=== PATIENT | male | born 1965 | race Two or more races ===

== ENCOUNTER 2023-11-25 18:25 | Inpatient (IN) | payer MEDICARE, OTHER ==
[~2023-11-25] VITALS: Ht 175.3 cm; Wt 73.4 kg
[2023-11-25] MEDS: CHLORHEXIDINE GLUCONATE 2% TOWELETTE [2'S/6'S] TP SCH (09:22)
[2023-11-25 18:49] LABS: BASOPHILS % (AUTO) 0.5 % (0.0-2.0); EOSINOPHILS % (AUTO) 1.1 % (1.0-6.0); HEMATOCRIT 36.2 % (41-53); HEMOGLOBIN 12.2 g/dL (13.5-17.5); LYMPHOCYTES # (AUTO) 2.1 K/uL (1.0-4.8); LYMPHOCYTES % (AUTO) 15.1 % (22.0-44.0); MEAN CORPUSCULAR HEMOGLOBIN 29.7 pg (26.0-34.0); MEAN CORPUSCULAR HGB CONC 33.7 G/dL (31.0-37.0); MEAN CORPUSCULAR VOLUME 88 fL (80-100); MONOCYTES # (AUTO) 1.1 K/uL (0.1-1.0); MONOCYTES % (AUTO) 8.2 % (2.0-9.0); NEUTROPHILS # (AUTO) 10.3 K/uL (1.8-7.7); NEUTROPHILS % (AUTO) 75.1 % (40.0-70.0); PLATELET COUNT (AUTO) 360 K/uL (150-450); RED BLOOD CELL COUNT(AUTO) 4.12 MIL/uL (4.50-5.90); WHITE BLOOD COUNT (AUTO) 13.7 K/uL (4.5-11.0)
[2023-11-25 19:03] LABS: APPEARANCE,URINE CLEAR (CLEAR); BILIRUBIN,URINE NEGATIVE (NEGATIVE); COLOR,URINE LIGHT YELLOW (YELLOW); GLUCOSE, URINE (UA) NEGATIVE (NEGATIVE); KETONES,URINE NEGATIVE (NEGATIVE); LEUKOCYTE ESTERASE ,URINE NEGATIVE (NEGATIVE); NITRATE,URINE NEGATIVE (NEGATIVE); OCCULT BLOOD,URINE TRACE (NEGATIVE); PH,URINE 6.5 (5.0-8.0); PH,URINE DRUG SCREEN 6.5 (5.0-8.0); PROTEIN,URINE 100-200,SEE CONFIRM mg/dL (NEGATIVE); SPECIFIC GRAVITIY, URINE 1.013 (1.003-1.030); UROBILINOGEN,URINE <=1.0 mg/dL (<=1.0)
[2023-11-25 19:04] LABS: INR 1.1 (0.9-1.1); PROTHROMBIN TIME 11.9 SEC (9.4-11.6)
[2023-11-25 19:10] LABS: ALCOHOL, URINE DRUG SCREEN NEGATIVE (NEGATIVE); AMPHET/METH SCREEN,URINE POSITIVE (NEGATIVE); BARBITURATE SCREEN, URINE NEGATIVE (NEGATIVE); BENZODIAZEPINES SCREEN,URINE NEGATIVE (NEGATIVE); CANNABINOID SCREEN,URINE POSITIVE (NEGATIVE); COCAINE SCREEN,URINE NEGATIVE (NEGATIVE); METHADONE SCREEN, URINE NEGATIVE (NEGATIVE); OPIATE SCREEN,URINE NEGATIVE (NEGATIVE); PHENCYCLIDINE SCREEN,URINE POSITIVE (NEGATIVE)
[2023-11-25 19:11] LABS: LACTIC ACID 1.8 mmol/L (0.4-2.0); TROPONIN I-HIGH SENSITIVITY 16 ng/L (<76)
[2023-11-25 19:11] LABS: BACTERIA,URINE Rare /HPF (None Seen); SQUAMOUS EPITHELIAL CELL,UR Rare /LPF (None Seen); SULFOSALICYLIC ACID,URINE 2+ (Negative); WBC,URINE 0-2 /HPF (0-5)
[2023-11-25 19:25] LABS: AMMONIA < 10 umol/L (11-32)
[2023-11-25 19:27] LABS: SODIUM SERUM 141 mmol/L (136-145)
[2023-11-25 19:28] LABS: ALANINE AMINOTRANSFERASE 116 U/L (12-78); ALBUMIN 3.1 g/dL (3.4-5.0); ALKALINE PHOSPHATASE 139 U/L (46-116); ANION GAP 8 mmol/L (8-16); ASPARTATE AMINOTRANSFERASE 130 U/L (15-37); BILIRUBIN,TOTAL 0.5 mg/dL (0.1-1.0); CALCIUM, TOTAL 8.4 mg/dL (8.8-10.5); CARBON DIOXIDE 31 mmol/L (22-29); CHLORIDE 102 mmol/L (98-107); CREATINE KINASE, TOTAL ONLY 196 U/L (39-308); CREATININE 1.01 mg/dL (0.60-1.30); GLOMERULAR FILTR. RATE CALC > 60 mL/min (>60); GLUCOSE,RANDOM 158 mg/dL (70-110); UREA NITROGEN, BLOOD 15 mg/dL (7-18)
[2023-11-25 19:29] LABS: POTASSIUM 2.7 mmol/L (3.5-5.1)
[2023-11-25] MEDS: SODIUM CHLORIDE 0.9% 1,000 ML IV ONE ×2 (19:34→19:35)
[2023-11-25] MEDS: NALOXONE HCL 1 MG/ML 2 ML SYRINGE IVP ONE ×2 (19:35)
[2023-11-25] MEDS: ONDANSETRON HCL 4 MG/2 ML VIAL IVP ONE (19:37)
[2023-11-25] MEDS: HydrALAZINE HCL 20 MG/ML VIAL IVP ONE (19:38)
[2023-11-25] MEDS ORDERED: MAGNESIUM SULFATE 2 GM/WATER 50 ML IV PRN (20:30)
[2023-11-25] MEDS ORDERED: MAGNESIUM SULFATE 4 GM/WATER 100 ML IV PRN (20:30)
[2023-11-25] MEDS ORDERED: MAGNESIUM OXIDE 400 MG TABLET PO PRN (20:30)
[2023-11-25] MEDS: NALOXONE HCL 10 MG in DEXTROSE 5%-WATER 240 ML IV PRN (20:34)
[2023-11-25] MEDS: DOCUSATE SODIUM 100 MG CAPSULE PO SCH (21:00)
[2023-11-25] MEDS: POTASSIUM CHL 10 MEQ/WATER 50 ML IV PRN (21:03)
[2023-11-25] MEDS: POTASSIUM CHLORIDE 20 MEQ ER TABLET PO ONE (21:06)
[2023-11-25 21:13] LABS: ALBUMIN 2.6 g/dL (3.4-5.0)
[2023-11-25] MEDS: LABETALOL HCL 5 MG/ML 20 ML VIAL IVP ONE (22:57)
[2023-11-26] MEDS: HEPARIN SODIUM,PORCINE 5,000 UNITS/ML VIAL SQ SCH
[2023-11-26] MEDS: NALOXONE HCL 10 MG in DEXTROSE 5%-WATER 240 ML IV PRN (00:15)
[2023-11-26] MEDS: HydrALAZINE HCL 20 MG/ML VIAL IVP PRN (01:01)
[2023-11-26] MEDS: NiCARDipine HCL 25 MG in SODIUM CHLORIDE 0.9% 240 ML IV PRN (02:49)
[2023-11-26 05:58] LABS: BASOPHILS % (AUTO) 0.4 % (0.0-2.0); EOSINOPHILS % (AUTO) 0.3 % (1.0-6.0); HEMATOCRIT 35.5 % (41-53); LYMPHOCYTES % (AUTO) 7.1 % (22.0-44.0); MEAN CORPUSCULAR HEMOGLOBIN 29.5 pg (26.0-34.0); MEAN CORPUSCULAR HGB CONC 33.7 G/dL (31.0-37.0); MEAN CORPUSCULAR VOLUME 87 fL (80-100); MONOCYTES # (AUTO) 1.3 K/uL (0.1-1.0); MONOCYTES % (AUTO) 9.6 % (2.0-9.0); NEUTROPHILS # (AUTO) 11.4 K/uL (1.8-7.7); NEUTROPHILS % (AUTO) 82.6 % (40.0-70.0); PLATELET COUNT (AUTO) 361 K/uL (150-450); RED BLOOD CELL COUNT(AUTO) 4.07 MIL/uL (4.50-5.90); RED CELL DISTRIBUTION WIDTH 13.9 % (11.5-14.5); WHITE BLOOD COUNT (AUTO) 13.8 K/uL (4.5-11.0)
[2023-11-26 06:09] LABS: ANION GAP 9 mmol/L (8-16); CALCIUM, TOTAL 8.3 mg/dL (8.8-10.5); CARBON DIOXIDE 29 mmol/L (22-29); CHLORIDE 103 mmol/L (98-107); CREATININE 0.79 mg/dL (0.60-1.30); GLOMERULAR FILTR. RATE CALC > 60 mL/min (>60); GLUCOSE,RANDOM 140 mg/dL (70-110); POTASSIUM 3.2 mmol/L (3.5-5.1); SODIUM SERUM 141 mmol/L (136-145); UREA NITROGEN, BLOOD 12 mg/dL (7-18)
[2023-11-26] MEDS: POTASSIUM CHLORIDE 20 MEQ ER TABLET PO PRN (06:18)
[2023-11-26 06:36] LABS: COVID AG,FIA SOURCE NASAL SWAB
[2023-11-26 07:22] LABS: SARS-COV2 (COVID) ANTIGEN,FIA Negative (Negative)
[2023-11-26 08:00] VITALS: BP 141/84; PULSE 47; PULSE 69; RESP 14; TEMP 97.9
[2023-11-26 12:00] VITALS: BP 143/75; PULSE 78; PULSE 79; RESP 12; TEMP 97.9
[2023-11-26] MEDS: ONDANSETRON HCL 4 MG/2 ML VIAL IVP PRN (14:29)
[2023-11-26 16:00] VITALS: BP 155/89; PULSE 83; PULSE 85; RESP 12; TEMP 98.5
[2023-11-26 20:00] VITALS: BP 158/88; PULSE 84; PULSE 89; RESP 14; TEMP 98.8
[2023-11-27] VITALS: BP 153/86; PULSE 84; PULSE 85; RESP 14; TEMP 98.7
[2023-11-27 04:00] VITALS: BP 151/84; PULSE 81; PULSE 83; RESP 13; TEMP 98.4
[2023-11-27 05:15] LABS: BASOPHILS % (AUTO) 0.5 % (0.0-2.0); EOSINOPHILS % (AUTO) 0.5 % (1.0-6.0); HEMATOCRIT 35.4 % (41-53); HEMOGLOBIN 11.9 g/dL (13.5-17.5); LYMPHOCYTES % (AUTO) 5.5 % (22.0-44.0); MEAN CORPUSCULAR HEMOGLOBIN 29.3 pg (26.0-34.0); MEAN CORPUSCULAR HGB CONC 33.6 G/dL (31.0-37.0); MEAN CORPUSCULAR VOLUME 87 fL (80-100); MONOCYTES # (AUTO) 1.8 K/uL (0.1-1.0); NEUTROPHILS # (AUTO) 15.1 K/uL (1.8-7.7); NEUTROPHILS % (AUTO) 83.5 % (40.0-70.0); PLATELET COUNT (AUTO) 374 K/uL (150-450); RED BLOOD CELL COUNT(AUTO) 4.05 MIL/uL (4.50-5.90); RED CELL DISTRIBUTION WIDTH 13.9 % (11.5-14.5); WHITE BLOOD COUNT (AUTO) 18.1 K/uL (4.5-11.0)
[2023-11-27 05:18] LABS: ANION GAP 8 mmol/L (8-16); CALCIUM, TOTAL 8.6 mg/dL (8.8-10.5); CARBON DIOXIDE 30 mmol/L (22-29); CHLORIDE 98 mmol/L (98-107); GLOMERULAR FILTR. RATE CALC > 60 mL/min (>60); GLUCOSE,RANDOM 131 mg/dL (70-110); POTASSIUM 3.5 mmol/L (3.5-5.1); SODIUM SERUM 136 mmol/L (136-145); UREA NITROGEN, BLOOD 15 mg/dL (7-18)
[2023-11-27] MEDS: LABETALOL HCL 5 MG/ML 20 ML VIAL IVP PRN (06:26)
[2023-11-27] MEDS: AmLODIPine BESYLATE 5 MG TABLET PO SCH (07:56)
[2023-11-27 08:00] VITALS: BP 151/84; PULSE 77; PULSE 80; RESP 12; TEMP 98.1
[2023-11-27 12:00] VITALS: BP 167/100; PULSE 77; PULSE 87; RESP 12; TEMP 98.9
[2023-11-27 16:00] VITALS: BP 146/80; PULSE 82; RESP 19; TEMP 98.4
[2023-11-27 20:38] VITALS: BP 147/86; PULSE 78; RESP 20; TEMP 97.9
[2023-11-28 04:41] VITALS: BP 147/76; PULSE 81; RESP 20; TEMP 99.8
[2023-11-28] MEDS: ACETAMINOPHEN 325 MG TABLET PO PRN (04:58)
[2023-11-28 09:22] VITALS: BP 150/73; PULSE 77; RESP 20; TEMP 98.4
== END 2023-11-28 11:35 | disposition left against medical advice (07) | DRG 917 ==
LOC: EMS 18:36 → EDBD 18:36 → ICU 11-26 07:31 → 6S 11-27 14:20
PROVIDERS: ADMIT Internal Medicine; ATTEND Internal Medicine
DX: T40.411A Poisoning by fentanyl or fentanyl analogs, accidental (unintentional), initial encounter (principal); G92.8 Other toxic encephalopathy; J69.0 Pneumonitis due to inhalation of food and vomit; J96.01 Acute respiratory failure with hypoxia; R65.10 Systemic inflammatory response syndrome (SIRS) of non-infectious origin without acute organ dysfunction; I16.1 Hypertensive emergency; L03.115 Cellulitis of right lower limb; Z20.822 Contact with and (suspected) exposure to COVID-19; E87.6 Hypokalemia; S91.331A Puncture wound without foreign body, right foot, initial encounter; W45.0XXA Nail entering through skin, initial encounter; Y93.89 Activity, other specified; Y92.89 Other specified places as the place of occurrence of the external cause; Y99.8 Other external cause status; Z53.29 Procedure and treatment not carried out because of patient's decision for other reasons
CPT/HCPCS: 51702; 70450; 71045; 80048; 80053; 80307; 81001; 81002; 82040; 82140; 82550; 83605; 83690; 83735; 84484; 85025; 85610; 85730; 87040; 87081; 93005; 99285; J0360; J1644; J2310; J2405; J3480; J3490; J7030; J7050; J7060; 36415-L1; 36415-TC

== ENCOUNTER 2024-01-19 11:57 | Inpatient (IN) | payer MEDICARE, OTHER ==
[~2024-01-19] VITALS: Ht 170.2 cm; Wt 74.0 kg
[2024-01-19] MEDS ORDERED: ZOLPIDEM TARTRATE 10 MG TABLET PO PRN (13:15)
[2024-01-19] MEDS ORDERED: QUEtiapine FUMARATE 100 MG TABLET PO PRN (13:15)
[2024-01-19] MEDS ORDERED: LORazepam 2 MG TABLET PO PRN (13:15)
[2024-01-19 13:37] LABS: ALCOHOL, URINE DRUG SCREEN NEGATIVE (NEGATIVE); AMPHET/METH SCREEN,URINE POSITIVE (NEGATIVE); BARBITURATE SCREEN, URINE NEGATIVE (NEGATIVE); BENZODIAZEPINES SCREEN,URINE NEGATIVE (NEGATIVE); CANNABINOID SCREEN,URINE POSITIVE (NEGATIVE); COCAINE SCREEN,URINE NEGATIVE (NEGATIVE); METHADONE SCREEN, URINE NEGATIVE (NEGATIVE); OPIATE SCREEN,URINE NEGATIVE (NEGATIVE); PHENCYCLIDINE SCREEN,URINE POSITIVE (NEGATIVE)
[2024-01-19 13:52] LABS: BASOPHILS % (AUTO) 0.9 % (0.0-2.0); EOSINOPHILS % (AUTO) 2.2 % (1.0-6.0); HEMATOCRIT 38.1 % (41-53); HEMOGLOBIN 12.9 g/dL (13.5-17.5); LYMPHOCYTES # (AUTO) 1.1 K/uL (1.0-4.8); LYMPHOCYTES % (AUTO) 13.4 % (22.0-44.0); MEAN CORPUSCULAR HEMOGLOBIN 29.3 pg (26.0-34.0); MEAN CORPUSCULAR HGB CONC 33.8 G/dL (31.0-37.0); MEAN CORPUSCULAR VOLUME 87 fL (80-100); MONOCYTES # (AUTO) 0.7 K/uL (0.1-1.0); NEUTROPHILS # (AUTO) 6.4 K/uL (1.8-7.7); NEUTROPHILS % (AUTO) 75.5 % (40.0-70.0); PLATELET COUNT (AUTO) 271 K/uL (150-450); RED CELL DISTRIBUTION WIDTH 15.2 % (11.5-14.5); WHITE BLOOD COUNT (AUTO) 8.5 K/uL (4.5-11.0)
[2024-01-19 13:56] LABS: COVID AG,FIA SOURCE NASAL SWAB
[2024-01-19 14:02] LABS: ANION GAP 8 mmol/L (8-16); CARBON DIOXIDE 32 mmol/L (22-29); CHLORIDE 103 mmol/L (98-107); GLOMERULAR FILTR. RATE CALC > 60 mL/min (>60); GLUCOSE,RANDOM 100 mg/dL (70-110); SODIUM SERUM 143 mmol/L (136-145); UREA NITROGEN, BLOOD 17 mg/dL (7-18)
[2024-01-19 14:08] LABS: ALCOHOL, BLOOD (SERUM) < 3 mg/dL (0-10)
[2024-01-19 14:11] LABS: POTASSIUM 2.6 mmol/L (3.5-5.1)
[2024-01-19 14:17] LABS: SARS-COV2 (COVID) ANTIGEN,FIA Negative (Negative)
[2024-01-19] MEDS: ONDANSETRON HCL 4 MG/2 ML VIAL IVP ONE (14:42)
[2024-01-19] MEDS: POTASSIUM CHLORIDE 40 MEQ in SODIUM CHLORIDE 0.9% 1,000 ML IV ONE (14:42)
[2024-01-19] MEDS: CloNIDine HCL 0.1 MG TABLET PO PRN (15:30)
[2024-01-19] MEDS: IOHEXOL 9 MG/ML 500 ML BOTTLE PO ONE (15:30)
[2024-01-19] MEDS: NALOXONE HCL 1 MG/ML 2 ML SYRINGE IVP ONE (15:33)
[2024-01-19 15:43] LABS: ABG BASE EXCESS 4.6 mmol/L (-2.0-3.0); ABG CARBOXYHEMOGLOBIN 0.4 % (0.0-1.5); ABG HCO3 28.1 mmol/L (22.0-26.0); ABG METHEMOGLOBIN 0.8 % (0.0-1.5); ABG OXYGEN CONTENT 18.8 mL/dL (15.0-23.0); ABG OXYGEN SATURATION 96.3 % (95.0-98.0); ABG OXYHEMOGLOBIN 95.1 % (94.0-100.0); ABG PCO2 42 mmHg (35-45); ABG PH 7.447 (7.35-7.450); ALLEN TEST, BLOOD GAS POS; PO2, ARTERIAL BG 77.8 mmHg (79.0-87.0); SITE, BLOOD GAS LFT RADIAL; SOURCE, BLOOD GAS ARTERIAL
[2024-01-19] MEDS ORDERED: IOHEXOL 350 MG/ML 100 ML VIAL ONE ×2 (15:53→21:29)
[2024-01-19] MEDS ORDERED: SODIUM CHLORIDE 0.9% 0 ML ONE (15:53)
[2024-01-19] MEDS ORDERED: MORPHINE SULFATE 2 MG/ML SYRINGE IVP PRN (16:30)
[2024-01-19] MEDS ORDERED: ZOLPIDEM TARTRATE 5 MG TABLET PO PRN (16:30)
[2024-01-19] MEDS ORDERED: ACETAMINOPHEN 325 MG TABLET PO PRN (16:30)
[2024-01-19] MEDS ORDERED: POTASSIUM CHLORIDE 20 MEQ ER TABLET PO PRN (16:30)
[2024-01-19] MEDS ORDERED: MAGNESIUM OXIDE 400 MG TABLET PO PRN (16:30)
[2024-01-19] MEDS ORDERED: MAGNESIUM SULFATE 2 GM/WATER 50 ML IV PRN (16:30)
[2024-01-19] MEDS ORDERED: ONDANSETRON HCL 4 MG/2 ML VIAL IVP PRN (16:30)
[2024-01-19] MEDS ORDERED: MAGNESIUM HYDROXIDE SUSPENSION 30 ML UDCUP PO PRN (16:30)
[2024-01-19] MEDS ORDERED: MAGNESIUM SULFATE 4 GM/WATER 100 ML IV PRN (16:30)
[2024-01-19] MEDS ORDERED: BISACODYL 10 MG RECTAL RECTAL SUPPOSITORY PR PRN (16:30)
[2024-01-19] MEDS: MAGNESIUM SULFATE 2 GM, MVI, ADULT NO.1 WITH VIT K 10 ML, THIAMINE 100 MG, FOLIC ACID 1... IV ONE (17:42)
[2024-01-19] MEDS: AmLODIPine BESYLATE 10 MG TABLET PO SCH (18:44)
[2024-01-19] MEDS: HydrALAZINE HCL 20 MG/ML VIAL IVP PRN (18:44)
[2024-01-19] MEDS: DOCUSATE SODIUM 100 MG CAPSULE PO SCH (20:04)
[2024-01-19] MEDS: LABETALOL HCL 5 MG/ML 20 ML VIAL IVP ONE (20:38)
[2024-01-19] MEDS: LORazepam 2 MG/ML VIAL IVP ONE (20:38)
[2024-01-19] MEDS ORDERED: SODIUM CHLORIDE 0.9% 100 ML ONE (21:29)
[2024-01-19 22:51] VITALS: BP 186/107; PULSE 91; RESP 20; TEMP 97.4
[2024-01-19 23:01] LABS: LACTIC ACID 0.8 mmol/L (0.4-2.0)
[2024-01-20] VITALS: BP 153/92; PULSE 87; RESP 17; TEMP 98.7
[2024-01-20] MEDS: HEPARIN SODIUM,PORCINE 5,000 UNITS/ML VIAL SQ SCH (00:53)
[2024-01-20] MEDS: POTASSIUM CHL 10 MEQ/WATER 50 ML IV PRN (00:54)
[2024-01-20] MEDS: LABETALOL HCL 200 MG in DEXTROSE 5%-WATER 160 ML IV PRN (01:00)
[2024-01-20 04:00] VITALS: BP 119/76; PULSE 57; RESP 14; TEMP 97.8
[2024-01-20 05:37] LABS: BASOPHILS % (AUTO) 0.6 % (0.0-2.0); EOSINOPHILS % (AUTO) 0.6 % (1.0-6.0); HEMATOCRIT 36.5 % (41-53); HEMOGLOBIN 12.2 g/dL (13.5-17.5); LYMPHOCYTES # (AUTO) 1.1 K/uL (1.0-4.8); LYMPHOCYTES % (AUTO) 13.5 % (22.0-44.0); MEAN CORPUSCULAR HEMOGLOBIN 29.1 pg (26.0-34.0); MEAN CORPUSCULAR HGB CONC 33.5 G/dL (31.0-37.0); MEAN CORPUSCULAR VOLUME 87 fL (80-100); MONOCYTES # (AUTO) 0.4 K/uL (0.1-1.0); MONOCYTES % (AUTO) 5.5 % (2.0-9.0); NEUTROPHILS # (AUTO) 6.5 K/uL (1.8-7.7); NEUTROPHILS % (AUTO) 79.8 % (40.0-70.0); PLATELET COUNT (AUTO) 268 K/uL (150-450); RED BLOOD CELL COUNT(AUTO) 4.19 MIL/uL (4.50-5.90); RED CELL DISTRIBUTION WIDTH 15.6 % (11.5-14.5); WHITE BLOOD COUNT (AUTO) 8.2 K/uL (4.5-11.0)
[2024-01-20 05:40] LABS: ANION GAP 6 mmol/L (8-16); CALCIUM, TOTAL 8.8 mg/dL (8.8-10.5); CARBON DIOXIDE 31 mmol/L (22-29); CHLORIDE 105 mmol/L (98-107); GLOMERULAR FILTR. RATE CALC > 60 mL/min (>60); GLUCOSE,RANDOM 127 mg/dL (70-110); POTASSIUM 3.2 mmol/L (3.5-5.1); SODIUM SERUM 142 mmol/L (136-145); UREA NITROGEN, BLOOD 14 mg/dL (7-18)
[2024-01-20 08:00] VITALS: BP 128/79; PULSE 61; RESP 16; TEMP 98.6
[2024-01-20] MEDS: PANTOPRAZOLE SODIUM 40 MG DR TABLET PO SCH (09:08)
[2024-01-20 09:28] LABS: TROPONIN I-HIGH SENSITIVITY 24 ng/L (<76)
[2024-01-20] MEDS: METOPROLOL TARTRATE 25 MG TABLET PO SCH (11:52)
[2024-01-20 12:00] VITALS: BP 134/91; PULSE 69; RESP 15; TEMP 99.1
[2024-01-20 16:00] VITALS: BP 135/67; PULSE 67; RESP 16; TEMP 98.1
[2024-01-20 20:00] VITALS: BP 162/96; PULSE 72; PULSE 74; RESP 16; TEMP 98.2
[2024-01-21 02:00] VITALS: BP 119/61; PULSE 60; PULSE 61; RESP 13; TEMP 98.6
[2024-01-21 04:00] VITALS: BP 140/61; PULSE 58; PULSE 60; RESP 15; TEMP 98.4
[2024-01-21 06:06] LABS: ANION GAP 9 mmol/L (8-16); CALCIUM, TOTAL 8.8 mg/dL (8.8-10.5); CARBON DIOXIDE 27 mmol/L (22-29); CHLORIDE 105 mmol/L (98-107); CREATININE 1.02 mg/dL (0.60-1.30); GLOMERULAR FILTR. RATE CALC > 60 mL/min (>60); GLUCOSE,RANDOM 101 mg/dL (70-110); SODIUM SERUM 141 mmol/L (136-145); UREA NITROGEN, BLOOD 21 mg/dL (7-18)
[2024-01-21 06:10] LABS: BASOPHILS % (AUTO) 0.4 % (0.0-2.0); EOSINOPHILS % (AUTO) 0.5 % (1.0-6.0); HEMATOCRIT 36.3 % (41-53); HEMOGLOBIN 12.1 g/dL (13.5-17.5); LYMPHOCYTES % (AUTO) 12.8 % (22.0-44.0); MEAN CORPUSCULAR HEMOGLOBIN 29.1 pg (26.0-34.0); MEAN CORPUSCULAR HGB CONC 33.3 G/dL (31.0-37.0); MEAN CORPUSCULAR VOLUME 87 fL (80-100); MONOCYTES # (AUTO) 0.5 K/uL (0.1-1.0); MONOCYTES % (AUTO) 6.2 % (2.0-9.0); NEUTROPHILS # (AUTO) 6.4 K/uL (1.8-7.7); NEUTROPHILS % (AUTO) 80.1 % (40.0-70.0); PLATELET COUNT (AUTO) 273 K/uL (150-450); RED BLOOD CELL COUNT(AUTO) 4.15 MIL/uL (4.50-5.90); RED CELL DISTRIBUTION WIDTH 15.7 % (11.5-14.5)
[2024-01-21 08:00] VITALS: BP 145/72; PULSE 68; PULSE 69; RESP 20; TEMP 98.2
[2024-01-21] MEDS: LABETALOL HCL 100 MG TABLET PO SCH (09:25)
[2024-01-21] MEDS: LOSARTAN POTASSIUM 50 MG TABLET PO SCH (09:25)
[2024-01-21 12:00] VITALS: BP 144/65; PULSE 70; RESP 16; TEMP 98.8
[2024-01-21 16:00] VITALS: BP 138/66; PULSE 66; PULSE 72; RESP 18; TEMP 98.3
[2024-01-21 20:00] VITALS: BP 96/76; PULSE 72; PULSE 76; RESP 16; TEMP 98
[2024-01-22] VITALS: BP 136/87; PULSE 73; RESP 14; TEMP 99.1
[2024-01-22 04:00] VITALS: BP 121/92; PULSE 74; RESP 15; TEMP 98.1
[2024-01-22 05:33] LABS: BASOPHILS % (AUTO) 0.8 % (0.0-2.0); HEMATOCRIT 36.4 % (41-53); HEMOGLOBIN 12.4 g/dL (13.5-17.5); LYMPHOCYTES # (AUTO) 1.4 K/uL (1.0-4.8); LYMPHOCYTES % (AUTO) 14.3 % (22.0-44.0); MEAN CORPUSCULAR HEMOGLOBIN 29.4 pg (26.0-34.0); MEAN CORPUSCULAR VOLUME 87 fL (80-100); MONOCYTES # (AUTO) 0.9 K/uL (0.1-1.0); NEUTROPHILS # (AUTO) 7.5 K/uL (1.8-7.7); NEUTROPHILS % (AUTO) 74.9 % (40.0-70.0); PLATELET COUNT (AUTO) 297 K/uL (150-450); RED BLOOD CELL COUNT(AUTO) 4.21 MIL/uL (4.50-5.90); RED CELL DISTRIBUTION WIDTH 15.4 % (11.5-14.5)
[2024-01-22 05:48] LABS: ALANINE AMINOTRANSFERASE 17 U/L (12-78); ALKALINE PHOSPHATASE 90 U/L (46-116); ANION GAP 10 mmol/L (8-16); ASPARTATE AMINOTRANSFERASE 15 U/L (15-37); BILIRUBIN,TOTAL 0.5 mg/dL (0.1-1.0); CALCIUM, TOTAL 8.6 mg/dL (8.8-10.5); CARBON DIOXIDE 27 mmol/L (22-29); CHLORIDE 104 mmol/L (98-107); CREATININE 0.92 mg/dL (0.60-1.30); GLOMERULAR FILTR. RATE CALC > 60 mL/min (>60); GLUCOSE,RANDOM 92 mg/dL (70-110); POTASSIUM 3.7 mmol/L (3.5-5.1); SODIUM SERUM 141 mmol/L (136-145); UREA NITROGEN, BLOOD 19 mg/dL (7-18)
[2024-01-22 08:00] VITALS: BP 165/92; PULSE 75; RESP 15; TEMP 98.8
[2024-01-22] MEDS: ATORVASTATIN CALCIUM 40 MG TABLET PO SCH (09:31)
[2024-01-22] MEDS: ASPIRIN 81 MG DR TABLET PO SCH (10:01)
[2024-01-22] MEDS: LABETALOL HCL 100 MG TABLET PO ONE (11:36)
[2024-01-22 12:00] VITALS: BP 131/72; PULSE 68; RESP 16; TEMP 98
[2024-01-22] MEDS: LABETALOL HCL 200 MG TABLET PO SCH (15:11)
[2024-01-22 16:00] VITALS: BP 134/77; PULSE 73; RESP 14; TEMP 99
[2024-01-22 20:53] VITALS: BP 137/80; PULSE 68; RESP 16; TEMP 98.5
[2024-01-23 00:20] VITALS: BP 140/88; PULSE 67; RESP 20; TEMP 98.2
[2024-01-23 04:30] VITALS: BP 154/98; PULSE 65; RESP 20; TEMP 98.1
[2024-01-23 07:57] VITALS: BP 174/79; PULSE 62; RESP 18; TEMP 98.1
[2024-01-23] MEDS: LOSARTAN POTASSIUM 50 MG TABLET PO SCH (08:19)
[2024-01-23] MEDS: HYDROCODONE/ACETAMINOPHEN 5-325 MG TABLET PO PRN (08:19)
== END 2024-01-23 10:35 | disposition left against medical advice (07) | DRG 917 ==
LOC: EMS 12:08 → 5S 19:36 → ICU 23:15 → 5S 01-22 18:35
PROVIDERS: ADMIT Internal Medicine; ATTEND Internal Medicine
DX: T40.601A Poisoning by unspecified narcotics, accidental (unintentional), initial encounter (principal); G92.8 Other toxic encephalopathy; I71.02 Dissection of abdominal aorta; J96.91 Respiratory failure, unspecified with hypoxia; I77.72 Dissection of iliac artery; I16.1 Hypertensive emergency; I69.354 Hemiplegia and hemiparesis following cerebral infarction affecting left non-dominant side; E87.6 Hypokalemia; F19.10 Other psychoactive substance abuse, uncomplicated; R00.0 Tachycardia, unspecified; I10 Essential (primary) hypertension; Z20.822 Contact with and (suspected) exposure to COVID-19; I70.0 Atherosclerosis of aorta; F32.9 Major depressive disorder, single episode, unspecified; Z53.29 Procedure and treatment not carried out because of patient's decision for other reasons; I25.10 Atherosclerotic heart disease of native coronary artery without angina pectoris; I25.2 Old myocardial infarction; Y92.89 Other specified places as the place of occurrence of the external cause; Z91.199 Patient's noncompliance with other medical treatment and regimen due to unspecified reason
CPT/HCPCS: 36600; 74174; 74175; 74177; 80048; 80053; 80307; 82040; 82805; 83605; 83735; 84132; 84484; 85025; 87081; 93306; 97163; 97530; 99285; G0480; J0360; J1644; J2060; J2310; J2405; J3411; J3475; J3480; J3490; J7030; J7050; J7060; Q9967